=== PATIENT | female | born 1960 | race Caucasian/White ===

== ENCOUNTER 2020-10-10 12:13 | Observation (INO) ==
[2020-10-10] MEDS ORDERED: metroNIDAZOLE 500 MG TABLET PO ONE (14:09)
[2020-10-10] MEDS ORDERED: Azithromycin 250 MG TABLET PO ONE (14:09)
[2020-10-10] MEDS ORDERED: cefTRIAXone 250 MG VIAL IM ONE (14:09)
[2020-10-10] MEDS ORDERED: Naloxone 0.4 MG/ML INJ IVP PRN (17:27)
[2020-10-10] MEDS ORDERED: Melatonin 3 MG TABLET PO PRN (17:27)
[2020-10-10] MEDS ORDERED: Acetaminophen 325 MG TABLET PO PRN (17:27)
[2020-10-10] MEDS ORDERED: Ondansetron 4 MG/2 ML VIAL IVP PRN (17:27)
[2020-10-11 06:44] VITALS: BP 110/71
== END 2020-10-11 12:10 | disposition home or self-care (01) ==
LOC: EMEROOARM 12:13 → 3BNU 12:13 → SUATTDRO 16:58 → 3BNU 18:00
PROVIDERS: ADMIT General Practice; ATTEND Internal Medicine